=== PATIENT | female | born 1985 | race Caucasian/White ===

== ENCOUNTER 2023-05-27 11:57 | Emergency (ER) | payer SELFPAY ==
[2023-05-27 12:07] VITALS: BMI 26.9
[2023-05-27] MEDS ORDERED: ONDANSETRON 4 MG/2 ML VIAL ONE (12:56)
[2023-05-27] MEDS ORDERED: ACETAMINOPHEN INJECTION 100 ML IVPB ONE (12:56)
[2023-05-27] MEDS: ACETAMINOPHEN 1000 MG/100 ML BAG IVPB ONE (12:57)
[2023-05-27] MEDS: ONDANSETRON 4 MG/2 ML VIAL IVPUSH ONE (12:58)
[2023-05-27 13:10] LABS: BASO % 0.8 % (0-2.0); EOS % 1.1 % (0-4.5); HEMATOCRIT 34.6 % (32.4-45.2); HEMOGLOBIN 11.4 GM/dL (10.7-15.3); LYMPH % 25.2 % (8-40); MCH 27.7 pg (25.7-33.7); MCHC 33.1 g/dl (32.0-36.0); MEAN CELL VOLUME 83.7 fl (80-96); MEAN PLT VOLUME 8.8 fl (7.5-11.1); MONO % 9.2 % (3.8-10.2); NEUT % 63.7 % (42.8-82.8); PLATELET COUNT 186 10^3/uL (134-434); RBC 4.13 M/mm3 (3.60-5.2); RDW 17.3 % (11.6-15.6); WHITE BLOOD COUNT 4.9 K/mm3 (4.0-10.0)
[2023-05-27 13:17] LABS: INR 1.12 (0.83-1.09)
[2023-05-27 13:20] LABS: ACTIVATED PTT 30.3 SECONDS (25.2-36.5)
[2023-05-27 13:53] LABS: POTASSIUM 3.7 mmol/L (3.5-5.1)
[2023-05-27 13:55] LABS: CALCIUM 8.5 mg/dL (8.5-10.1)
[2023-05-27 13:56] LABS: ALBUMIN 3.5 g/dl (3.4-5.0); BLOOD UREA NITROGEN 9.9 mg/dL (7-18)
[2023-05-27 13:59] LABS: CREATININE 0.7 mg/dL (0.55-1.3)
[2023-05-27 14:00] LABS: TOT PROT 7.3 g/dl (6.4-8.2)
[2023-05-27 14:01] LABS: BILIRUBIN,TOTAL 0.3 mg/dL (0.2-1)
[2023-05-27] MEDS ORDERED: KETOROLAC TROMETHAMINE 30 MG/1 ML VIAL ONE (14:04)
[2023-05-27] MEDS: KETOROLAC TROMETHAMINE 30 MG/1 ML VIAL IVPUSH ONE (14:15)
[2023-05-27 14:27] LABS: EPI CELLS 9 /uL (0-25.1); HYALINE CASTS 0 /uL (0-3.1); PH,URINE 7.5 (5.0-8.0); URINE APPEARANCE CLOUDY; URINE BACTERIA >9,000 /uL (0-1359); URINE BILIRUBIN NEGATIVE (NEGATIVE); URINE COLOR YELLOW; URINE GLUCOSE (UA) NEGATIVE (NEGATIVE); URINE KETONE NEGATIVE (NEGATIVE); URINE LEUK ESTERASE NEGATIVE (NEGATIVE); URINE NITRITE POSITIVE (NEGATIVE); URINE PROTEIN NEGATIVE (NEGATIVE); URINE RBC 8 /uL (0-23.9); URINE UROBILINOGEN 0.2 mg/dL (0.2-1.0); URINE WBC 8 /uL (0-25.8)
[2023-05-27] MEDS ORDERED: CEFTRIAXONE 1 GM/50 ML BAG ONE (15:31)
[2023-05-27] MEDS: CEFTRIAXONE 1 GM in DEXTROSE 5%-WATER - 100 ML IVPB ONE (16:07)
[2023-05-27 17:38] VITALS: BP 88/55; PULSE 70; RESP 17; TEMP 98.2
== END 2023-05-27 18:22 | disposition home or self-care (01) ==
LOC: JER 11:57
PROC: 3E03329 Introduction of Other Anti-infective into Peripheral Vein, Percutaneous Approach (ICD-10-PCS; principal; 2023-05-27)
PROC: 3E033GC Introduction of Other Therapeutic Substance into Peripheral Vein, Percutaneous Approach (ICD-10-PCS; 2023-05-27)
PROC: 3E033GC Introduction of Other Therapeutic Substance into Peripheral Vein, Percutaneous Approach (ICD-10-PCS; 2023-05-27)
PROC: 3E033GC Introduction of Other Therapeutic Substance into Peripheral Vein, Percutaneous Approach (ICD-10-PCS; 2023-05-27)
DX: R10.31 Right lower quadrant pain (principal); R11.0 Nausea; N39.0 Urinary tract infection, site not specified
CPT/HCPCS: 36415; 74177-TC; 76830-TC; 80053; 81003; 84703; 85025; 85610; 85730; 86850; 86900; 86901; 87086; 87186; 99285-25; J0131; Q9967

== ENCOUNTER 2023-09-23 10:40 | Observation (INO) | payer OTHER ==
[2023-09-23 10:47] VITALS: BMI 25.9
[2023-09-23] MEDS ORDERED: ACETAMINOPHEN INJECTION 100 ML IVPB ONE (11:17)
[2023-09-23] MEDS ORDERED: ONDANSETRON 4 MG/2 ML VIAL ONE ×2 (11:17→14:28)
[2023-09-23] MEDS ORDERED: KETOROLAC TROMETHAMINE 15 MG/ML VIAL ONE (11:17)
[2023-09-23] MEDS: ACETAMINOPHEN 1000 MG/100 ML BAG IVPB ONE (11:29)
[2023-09-23] MEDS: KETOROLAC TROMETHAMINE 15 MG/ML VIAL IVPUSH ONE (11:30)
[2023-09-23] MEDS: LACTATED RINGERS SOLUTION 1000 ML INFUS.BAG IV ONE ×2 (11:30→14:12)
[2023-09-23] MEDS: ONDANSETRON 4 MG/2 ML VIAL IVPUSH ONE ×2 (11:30→14:35)
[2023-09-23 11:38] LABS: EOS % 0.7 % (0-4.5); HEMATOCRIT 32.7 % (32.4-45.2); HEMOGLOBIN 10.7 GM/dL (10.7-15.3); LYMPH % 28.4 % (8-40); MCH 27.5 pg (25.7-33.7); MCHC 32.6 g/dl (32.0-36.0); MEAN CELL VOLUME 84.2 fl (80-96); MEAN PLT VOLUME 9.3 fl (7.5-11.1); MONO % 6.9 % (3.8-10.2); PLATELET COUNT 178 10^3/uL (134-434); RBC 3.88 M/mm3 (3.60-5.2); RDW 16.5 % (11.6-15.6); WHITE BLOOD COUNT 4.8 K/mm3 (4.0-10.0)
[2023-09-23 12:00] LABS: POTASSIUM 3.6 mmol/L (3.5-5.1)
[2023-09-23 12:01] LABS: CALCIUM 8.6 mg/dL (8.5-10.1)
[2023-09-23 12:02] LABS: ALBUMIN 3.4 g/dl (3.4-5.0); BLOOD UREA NITROGEN 8.2 mg/dL (7-18)
[2023-09-23 12:05] LABS: CREATININE 0.6 mg/dL (0.55-1.3)
[2023-09-23 12:06] LABS: TOT PROT 7.3 g/dl (6.4-8.2)
[2023-09-23 12:07] LABS: BILIRUBIN,TOTAL 0.6 mg/dL (0.2-1)
[2023-09-23 12:07] LABS: EPI CELLS 12 /uL (0-25.1); HYALINE CASTS 0 /uL (0-3.1); PH,URINE 6.5 (5.0-8.0); URINE APPEARANCE CLEAR; URINE BACTERIA >9,000 /uL (0-1359); URINE BILIRUBIN NEGATIVE (NEGATIVE); URINE COLOR YELLOW; URINE GLUCOSE (UA) NEGATIVE (NEGATIVE); URINE KETONE NEGATIVE (NEGATIVE); URINE LEUK ESTERASE 2+ (NEGATIVE); URINE NITRITE POSITIVE (NEGATIVE); URINE PROTEIN NEGATIVE (NEGATIVE); URINE RBC 17 /uL (0-23.9); URINE UROBILINOGEN 0.2 mg/dL (0.2-1.0); URINE WBC 321 /uL (0-25.8)
[2023-09-23] MEDS ORDERED: CEFTRIAXONE 1 GM/50 ML BAG ONE (12:32)
[2023-09-23] MEDS: CEFTRIAXONE 1,000 MG in DEXTROSE 5%-WATER - 50 ML IVPB ONE (12:38)
[2023-09-23] MEDS ORDERED: MORPHINE SULFATE 2 MG/ML SYRINGE ONE (12:56)
[2023-09-23] MEDS: morphine CARPU-JECT 2 MG/1 ML DISP.SYRIN IVPUSH ONE (12:58)
[2023-09-23] MEDS ORDERED: MORPHINE SULFATE 2 MG/ML SYRINGE IVPUSH PRN (15:23)
[2023-09-23] MEDS ORDERED: ACETAMINOPHEN 325 MG TABLET (FP) PO PRN (15:23)
[2023-09-23] MEDS ORDERED: ACETAMINOPHEN 500 MG TABLET (FP) PO PRN (15:24)
[2023-09-23] MEDS: ACETAMINOPHEN 500 MG TABLET (FP) PO SCH (17:38)
[2023-09-23] MEDS: SODIUM CHLORIDE 1,000 ML IV SCH (17:39)
[2023-09-23] MEDS: ONDANSETRON 4 MG/2 ML VIAL IVPUSH PRN (20:01)
[2023-09-24 07:39] LABS: HEMATOCRIT 29.4 % (32.4-45.2); HEMOGLOBIN 9.7 GM/dL (10.7-15.3); MCH 27.9 pg (25.7-33.7); MCHC 32.8 g/dl (32.0-36.0); MEAN CELL VOLUME 85.1 fl (80-96); MEAN PLT VOLUME 9.3 fl (7.5-11.1); PLATELET COUNT 137 10^3/uL (134-434); RBC 3.46 M/mm3 (3.60-5.2); RDW 16.6 % (11.6-15.6)
[2023-09-24 07:54] LABS: POTASSIUM 3.9 mmol/L (3.5-5.1)
[2023-09-24 07:57] LABS: BLOOD UREA NITROGEN 5.1 mg/dL (7-18); MAGNESIUM 1.9 mg/dL (1.8-2.4)
[2023-09-24 07:59] LABS: PHOSPHOROUS 2.8 mg/dL (2.5-4.9)
[2023-09-24 08:00] LABS: CREATININE 0.6 mg/dL (0.55-1.3)
[2023-09-24 08:01] LABS: URIC ACID 3.2 mg/dL (2.6-7.2)
[2023-09-24] MEDS: CEFTRIAXONE 1 GM in DEXTROSE 5%-WATER - 50 ML IVPB SCH (09:14)
[2023-09-24] MEDS ORDERED: ACETAMINOPHEN 500 MG TABLET (FP) PO PRN (11:33)
[2023-09-24] MEDS ORDERED: KETOROLAC TROMETHAMINE 10 MG TABLET PO PRN (11:33)
[2023-09-25 07:30] LABS: HEMATOCRIT 30.7 % (32.4-45.2); HEMOGLOBIN 9.9 GM/dL (10.7-15.3); MCH 27.7 pg (25.7-33.7); MCHC 32.1 g/dl (32.0-36.0); MEAN CELL VOLUME 86.2 fl (80-96); MEAN PLT VOLUME 9.5 fl (7.5-11.1); PLATELET COUNT 151 10^3/uL (134-434); RBC 3.57 M/mm3 (3.60-5.2); RDW 16.2 % (11.6-15.6); WHITE BLOOD COUNT 4.8 K/mm3 (4.0-10.0)
[2023-09-25 07:53] LABS: POTASSIUM 3.9 mmol/L (3.5-5.1)
[2023-09-25 07:56] LABS: BLOOD UREA NITROGEN 3.5 mg/dL (7-18)
[2023-09-25 07:58] LABS: CALCIUM 7.9 mg/dL (8.5-10.1); CREATININE 0.6 mg/dL (0.55-1.3); MAGNESIUM 1.9 mg/dL (1.8-2.4); PHOSPHOROUS 2.9 mg/dL (2.5-4.9)
[2023-09-25 14:47] VITALS: BP 89/51; PULSE 70; RESP 20; TEMP 98.6
== END 2023-09-25 12:46 | disposition home or self-care (01) ==
LOC: JER 10:40 → JERBED 14:27 → J7W 16:00
PROVIDERS: ADMIT Internal Medicine; ATTEND Internal Medicine
PROC: 3E03329 Introduction of Other Anti-infective into Peripheral Vein, Percutaneous Approach (ICD-10-PCS; principal; 2023-09-23)
PROC: 3E033NZ Introduction of Analgesics, Hypnotics, Sedatives into Peripheral Vein, Percutaneous Approach (ICD-10-PCS; 2023-09-23)
PROC: 3E0333Z Introduction of Anti-inflammatory into Peripheral Vein, Percutaneous Approach (ICD-10-PCS; 2023-09-23)
PROC: 3E0337Z Introduction of Electrolytic and Water Balance Substance into Peripheral Vein, Percutaneous Approach (ICD-10-PCS; 2023-09-23)
PROC: 3E033NZ Introduction of Analgesics, Hypnotics, Sedatives into Peripheral Vein, Percutaneous Approach (ICD-10-PCS; 2023-09-23)
DX: A41.9 Sepsis, unspecified organism (principal); N10 Acute pyelonephritis; R11.2 Nausea with vomiting, unspecified; N83.299 Other ovarian cyst, unspecified side
CPT/HCPCS: 36415; 74176-TC; 76775-TC; 80048; 80053; 81003; 83735; 84100; 84550; 84703; 85025; 85027; 87086; 87186; 87491; 87591; 87661; 93005; 93010; 96365; 96366; 96375; 96376; 99285-25; G0378; J0131

== ENCOUNTER 2023-10-14 08:19 | Emergency (ER) | payer OTHER ==
[2023-10-14 08:31] VITALS: BP 91/62; PULSE 81; RESP 16; TEMP 98.8; BMI 25.9
[2023-10-14] MEDS ORDERED: ONDANSETRON 4 MG/2 ML VIAL ONE (09:53)
[2023-10-14] MEDS ORDERED: ACETAMINOPHEN INJECTION 100 ML IVPB ONE (09:55)
[2023-10-14] MEDS: SODIUM CHLORIDE 0.9% 500 ML INFUS.BAG IV ONE (09:59)
[2023-10-14] MEDS: ACETAMINOPHEN 1000 MG/100 ML BAG IVPB ONE (09:59)
[2023-10-14 10:07] LABS: EPI CELLS 14 /uL (0-25.1); HYALINE CASTS 0 /uL (0-3.1); URINE APPEARANCE CLEAR; URINE BACTERIA 1733 /uL (0-1359); URINE BILIRUBIN NEGATIVE (NEGATIVE); URINE COLOR YELLOW; URINE GLUCOSE (UA) NEGATIVE (NEGATIVE); URINE KETONE NEGATIVE (NEGATIVE); URINE LEUK ESTERASE 1+ (NEGATIVE); URINE NITRITE NEGATIVE (NEGATIVE); URINE PROTEIN NEGATIVE (NEGATIVE); URINE RBC 8 /uL (0-23.9); URINE UROBILINOGEN 0.2 mg/dL (0.2-1.0); URINE WBC 71 /uL (0-25.8)
[2023-10-14 10:25] LABS: POTASSIUM 3.5 mmol/L (3.5-5.1)
[2023-10-14 10:27] LABS: ALBUMIN 3.8 g/dl (3.4-5.0); BLOOD UREA NITROGEN 8.1 mg/dL (7-18); CALCIUM 9.1 mg/dL (8.5-10.1); HCG,QUALITATIVE URINE NEGATIVE
[2023-10-14 10:31] LABS: CREATININE 0.6 mg/dL (0.55-1.3)
[2023-10-14 10:32] LABS: BILIRUBIN,TOTAL 0.7 mg/dL (0.2-1); TOT PROT 7.7 g/dl (6.4-8.2)
[2023-10-14 10:53] LABS: EOS % 0.8 % (0-4.5); HEMATOCRIT 34.7 % (32.4-45.2); HEMOGLOBIN 11.3 GM/dL (10.7-15.3); LYMPH % 30.3 % (8-40); MCH 27.7 pg (25.7-33.7); MCHC 32.5 g/dl (32.0-36.0); MEAN CELL VOLUME 85.2 fl (80-96); MEAN PLT VOLUME 9.4 fl (7.5-11.1); MONO % 7.2 % (3.8-10.2); NEUT % 60.7 % (42.8-82.8); PLATELET COUNT 185 10^3/uL (134-434); RBC 4.07 M/mm3 (3.60-5.2); RDW 15.7 % (11.6-15.6); WHITE BLOOD COUNT 5.1 K/mm3 (4.0-10.0)
[2023-10-14] MEDS ORDERED: KETOROLAC TROMETHAMINE 15 MG/ML VIAL ONE (11:59)
[2023-10-14] MEDS: KETOROLAC TROMETHAMINE 15 MG/ML VIAL IVPUSH ONE ×2 (12:01→12:27)
[2023-10-14] MEDS ORDERED: metroNIDAZOLE 250 MG TABLET ONE (13:36)
[2023-10-14] MEDS: metroNIDAZOLE 250 MG TABLET PO ONE (13:38)
[2023-10-14 14:33] LABS: HIV INTERPRETATION NEGATIVE (NEGATIVE)
== END 2023-10-14 13:57 | disposition home or self-care (01) ==
LOC: JER 08:19
PROC: 3E033NZ Introduction of Analgesics, Hypnotics, Sedatives into Peripheral Vein, Percutaneous Approach (ICD-10-PCS; principal; 2023-10-14)
PROC: 3E0333Z Introduction of Anti-inflammatory into Peripheral Vein, Percutaneous Approach (ICD-10-PCS; 2023-10-14)
DX: N39.0 Urinary tract infection, site not specified (principal); A59.01 Trichomonal vulvovaginitis; R10.31 Right lower quadrant pain
CPT/HCPCS: 36415; 74176-TC; 76775-TC; 76830-TC; 80053; 81003; 84703; 85025; 86780; 87070; 87086; 87186; 87205; 87389; 87491; 87522; 87591; 87661; 99284-25; J0131

== ENCOUNTER 2023-12-30 16:22 | Emergency (ER) | payer OTHER ==
[2023-12-30 16:34] VITALS: TEMP 98.4; BMI 23.9
[2023-12-30] MEDS ORDERED: MORPHINE SULFATE 2 MG/ML SYRINGE ONE (18:52)
[2023-12-30] MEDS ORDERED: ACETAMINOPHEN INJECTION 100 ML ONE (18:52)
[2023-12-30] MEDS: ACETAMINOPHEN 1000 MG/100 ML BAG IVPB ONE (19:04)
[2023-12-30] MEDS: morphine SULFATE 4 MG/ML VIAL IVPUSH ONE (19:04)
[2023-12-30 19:27] LABS: BASO % 0.5 % (0-2.0); EOS % 0.3 % (0-4.5); HEMATOCRIT 34.2 % (32.4-45.2); HEMOGLOBIN 10.8 GM/dL (10.7-15.3); LYMPH % 30.9 % (8-40); MCH 26.8 pg (25.7-33.7); MCHC 31.5 g/dl (32.0-36.0); MEAN PLT VOLUME 9.3 fl (7.5-11.1); MONO % 4.3 % (3.8-10.2); PLATELET COUNT 202 10^3/uL (134-434); RBC 4.03 M/mm3 (3.60-5.2); WHITE BLOOD COUNT 5.7 K/mm3 (4.0-10.0)
[2023-12-30 19:35] LABS: POTASSIUM 3.7 mmol/L (3.5-5.1)
[2023-12-30 19:37] LABS: BLOOD UREA NITROGEN 7.2 mg/dL (7-18); CALCIUM 8.9 mg/dL (8.5-10.1)
[2023-12-30 19:38] LABS: ALBUMIN 3.9 g/dl (3.4-5.0)
[2023-12-30 19:40] LABS: CREATININE 0.7 mg/dL (0.55-1.3)
[2023-12-30 19:42] LABS: BILIRUBIN,TOTAL 0.4 mg/dL (0.2-1); TOT PROT 7.7 g/dl (6.4-8.2)
[2023-12-30] MEDS ORDERED: ONDANSETRON 4 MG/2 ML VIAL ONE (19:45)
[2023-12-30] MEDS: ONDANSETRON 4 MG/2 ML VIAL IVPUSH ONE (20:03)
[2023-12-30] MEDS: LACTATED RINGERS SOLUTION 1,000 ML IV STA (20:03)
[2023-12-30 20:30] LABS: HIV INTERPRETATION NEGATIVE (NEGATIVE)
[2023-12-30 21:51] LABS: HCG,QUALITATIVE URINE Negative
[2023-12-30 21:59] LABS: URINE APPEARANCE CLEAR; URINE BILIRUBIN NEGATIVE (NEGATIVE); URINE COLOR YELLOW; URINE GLUCOSE (UA) NEGATIVE (NEGATIVE); URINE KETONE NEGATIVE (NEGATIVE); URINE LEUK ESTERASE TRACE (NEGATIVE); URINE NITRITE NEGATIVE (NEGATIVE); URINE PROTEIN NEGATIVE (NEGATIVE); URINE UROBILINOGEN 0.2 mg/dL (0.2-1.0)
[2023-12-30] MEDS ORDERED: KETOROLAC TROMETHAMINE 15 MG/ML VIAL ONE (23:00)
[2023-12-30] MEDS: KETOROLAC TROMETHAMINE 15 MG/ML VIAL IVPUSH ONE (23:15)
[2023-12-30 23:20] VITALS: BP 96/62; PULSE 62; RESP 18
[2023-12-30 23:31] LABS: EPI CELLS 4.3 /uL (0-25.1); HYALINE CASTS 0.13 /uL (0-3.1); URINE BACTERIA 29260.8 /uL (0-1359); URINE RBC 4.1 /uL (0-23.9); URINE WBC 11.9 /uL (0-25.8)
== END 2023-12-30 23:20 | disposition home or self-care (01) ==
LOC: JER 16:22
DX: N12 Tubulo-interstitial nephritis, not specified as acute or chronic (principal); R31.9 Hematuria, unspecified; R11.0 Nausea; R50.9 Fever, unspecified; N13.30 Unspecified hydronephrosis
CPT/HCPCS: 36415; 76775-TC; 80053; 81003; 84703; 85025; 86803; 87086; 87186; 87389; 99284-25; J0131

== ENCOUNTER 2024-05-04 11:45 | Emergency (ER) | payer SELFPAY ==
[2024-05-04 12:02] VITALS: BMI 25.0
[2024-05-04] MEDS ORDERED: ACETAMINOPHEN INJECTION 100 ML ONE ×2 (12:33→19:45)
[2024-05-04 12:37] LABS: URINE APPEARANCE CLEAR; URINE BILIRUBIN NEGATIVE (NEGATIVE); URINE COLOR YELLOW; URINE GLUCOSE (UA) NEGATIVE (NEGATIVE); URINE KETONE NEGATIVE (NEGATIVE); URINE LEUK ESTERASE NEGATIVE (NEGATIVE); URINE NITRITE NEGATIVE (NEGATIVE); URINE PROTEIN NEGATIVE (NEGATIVE)
[2024-05-04] MEDS: ACETAMINOPHEN 1000 MG/100 ML BAG IVPB ONE ×2 (12:50→19:45)
[2024-05-04] MEDS: SODIUM CHLORIDE 0.9% 500 ML INFUS.BAG IV ONE (12:50)
[2024-05-04 12:55] LABS: BASO % 1.5 % (0-2.0); EOS % 0.4 % (0-4.5); HEMATOCRIT 29.7 % (32.4-45.2); HEMOGLOBIN 9.6 GM/dL (10.7-15.3); MCH 25.4 pg (25.7-33.7); MCHC 32.2 g/dl (32.0-36.0); MEAN CELL VOLUME 78.6 fl (80-96); MEAN PLT VOLUME 9.2 fl (7.5-11.1); MONO % 6.6 % (3.8-10.2); NEUT % 66.5 % (42.8-82.8); PLATELET COUNT 246 10^3/uL (134-434); RBC 3.77 M/mm3 (3.60-5.2); RDW 17.9 % (11.6-15.6); WHITE BLOOD COUNT 6.6 K/mm3 (4.0-10.0)
[2024-05-04] MEDS ORDERED: morphine SULFATE 4 MG/ML VIAL ONE (13:36)
[2024-05-04 13:46] LABS: POTASSIUM 4.4 mmol/L (3.5-5.1)
[2024-05-04] MEDS: morphine CARPU-JECT 4 MG/1 ML DISP.SYRIN IVPUSH ONE (13:46)
[2024-05-04 13:49] LABS: ALBUMIN 3.4 g/dl (3.4-5.0); BLOOD UREA NITROGEN 10.1 mg/dL (7-18)
[2024-05-04 13:52] LABS: CREATININE 0.6 mg/dL (0.55-1.3)
[2024-05-04 13:54] LABS: BILIRUBIN,TOTAL 0.5 mg/dL (0.2-1); TOT PROT 7.2 g/dl (6.4-8.2)
[2024-05-04] MEDS ORDERED: FENTANYL CITRATE/PF 50 MCG/ML VIAL ONE (14:12)
[2024-05-04 14:22] LABS: HIV INTERPRETATION NEGATIVE (NEGATIVE)
[2024-05-04] MEDS: PIPERACILLIN/TAZOBACTAM 4.5 GM VIAL IVPB ONE (14:26)
[2024-05-04] MEDS ORDERED: PIPERACILLIN/TAZOB 4.5 GM 4.5 GM/100 ML BAG IVPB ONE (14:26)
[2024-05-04 14:41] LABS: VENOUS O2 SATURATION 92.4 % (70-80); VENOUS PCO2 28.6 mmHg (38-52); VENOUS PH 7.407 (7.310-7.410)
[2024-05-04 14:53] LABS: INR 1.07 (0.83-1.09); PROTHROMBIN TIME (PATIENT) 11.8 SEC (9.7-13.0)
[2024-05-04 14:55] LABS: ACTIVATED PTT 26.6 SECONDS (25.2-36.5)
[2024-05-04] MEDS: LACTATED RINGERS SOLUTION 1000 ML INFUS.BAG IV ONE ×2 (17:41→20:27)
[2024-05-04 21:30] VITALS: BP 88/58; PULSE 93; RESP 16; TEMP 98.2
[2024-05-04] MEDS: IBUPROFEN 600 MG TABLET (FP) PO ONE (21:42)
[2024-05-04] MEDS ORDERED: IBUPROFEN 600 MG TABLET (FP) PO ONE (21:45)
== END 2024-05-04 21:49 | disposition home or self-care (01) ==
LOC: JER 11:45
PROC: 3E03329 Introduction of Other Anti-infective into Peripheral Vein, Percutaneous Approach (ICD-10-PCS; principal; 2024-05-04)
PROC: 3E033NZ Introduction of Analgesics, Hypnotics, Sedatives into Peripheral Vein, Percutaneous Approach (ICD-10-PCS; 2024-05-04)
PROC: 3E033NZ Introduction of Analgesics, Hypnotics, Sedatives into Peripheral Vein, Percutaneous Approach (ICD-10-PCS; 2024-05-04)
PROC: 3E033NZ Introduction of Analgesics, Hypnotics, Sedatives into Peripheral Vein, Percutaneous Approach (ICD-10-PCS; 2024-05-04)
PROC: 3E03329 Introduction of Other Anti-infective into Peripheral Vein, Percutaneous Approach (ICD-10-PCS; 2024-05-04)
DX: N83.11 Corpus luteum cyst of right ovary (principal); R10.11 Right upper quadrant pain; R10.31 Right lower quadrant pain; R19.7 Diarrhea, unspecified; R50.9 Fever, unspecified; Z20.822 Contact with and (suspected) exposure to COVID-19
CPT/HCPCS: 0241U-QW; 36415; 71045-TC-FY; 74177-TC; 76830-TC; 80053; 81003; 82803; 83605; 83690; 84484; 84703; 85025; 85610; 85730; 86803; 86850; 86900; 86901; 87040; 87086; 87186; 87389; 93005; 93010; 99285-25; J0131; Q9967